=== PATIENT | female | born 1970 | race Hispanic/Latino ===

== ENCOUNTER 2018-06-17 14:04 | Observation (INO) | payer BC ==
--- OUTSIDE RECORDS SUMMARY | 2018-06-17 14:06 | XMS REPORT ---
:1970 [facility] [id number] Care Team Providers Name Role Phone Unavailable Unavailable Unavailable Problems This patient has no known problems. Allergies, Adverse Reactions, Alerts This patient has no known allergies or adverse reactions. Medications This patient has no known medications. Results Test Description Test Time Test Comments Text Results Atomic Results Result Comments [id number] 2018-05-01 11:01:32 CLINICAL INDICATION: Z12.31 Mammography with Annual exam - no breast problems Tomosynthesis today per pt. Saline implants 09/2017. Prior exams w/HMI [id number]: Siemens [employer] Full Field Digital MammographyTECHNIQUE: Digital acquisition of the breasts is performed on the ACR accredited Full Field Digital Mammography Unit. Computer Assisted Detection (CAD) is then accomplished using Numerate Technology. 3D tomosynthesis images were acquired in the CC and MLO projections in both breasts. FINDINGS:COMPARISON STUDY: May 2017, May 2016, December 2010The breast parenchyma is heterogeneously dense which may obscure small masses. Bilateral silicone implants are present. Implants appear subglandular. Implant present and implant displaced views are performed. 3-D imaging was performed on the implant displaced views.No dominant mass, skin thickening, architectural distortion or suspicious microcalcifications are noted.No significant interval change is noted.IMPRESSION:Negative bilateral mammogram RECOMMENDATION: Annual mammography in 1 yearCategory: BIRADS 2 - Benign. For internal use only. N:12 MRI KNEE JNT RT WO 2018-03-19 23:15:00 CLINICAL INDICATION: S83.211A Bucket-hndl tear of medial mensc, crnt injury, r knee, initMODALITY: [employer] 1.2 [place] High Field Open MRITECHNIQUE: Multiplanar multisequence MRI of the right knee was performed .IMPRESSION:1. Mild grade 2 patellar/trochlear groove chondromalacia.2. Trace joint effusion.FINDINGS:COMPARISON: none MENISCI: Medial and lateral menisci are intact.CRUCIATE LIGAMENTS: Anterior and posterior cruciate ligaments are intact.COLLATERAL LIGAMENTS: Medial and lateral collateral ligaments are intact.OSSEOUS STRUCTURES AND CARTILAGINOUS SURFACES: No fractures or destructive osseous lesions are seen. Marrow signal is unremarkable. High-grade chondral lesion in the medial or lateral compartment is not seen.PATELLOFEMORAL COMPARTMENT: Patellofemoral alignment is normal. Mild grade 2 patellar and trochlear groove chondromalacia is apparent..MISCELLANEOUS FINDINGS: Trace joint effusion is present. US BREAST COMPLETE UNL CLINICAL INDICATION: 46-year-old LT/RT female with left lateral palpable lump for 2 months. History of left breast cyst aspiration 2016. No family history breast cancer.MODALITY: Siemens Inspiration Full Field Digital Mammography, [employer] [facility] 70GTECHNIQUE: Digital acquisition of the breasts is performed on the ACR accredited Full Field Digital Mammography Unit. Computer Assisted Detection (CAD) is then accomplished using Numerate Technology. Imaging of the left and right breast is performed.Realtime and Doppler color breast imaging in all quadrants was performed on the left and right breast.FINDINGS:COMPARISON STUDY: Mammograms dating back to December 2010Diagnostic Mammogram:The breast parenchyma is heterogeneously dense which may obscure small masses. Bilateral CC and MLO views are performed in 2-D and 3-D. In the left medial and lateral breast, there are two new circumscribed 1 cm masses. No associated calcifications or distortion. Ultrasound:Bilateral breast ultrasound is performed. A focused physical exam is performed of the palpable lump in the left lateral breast. Corresponding with the palpated lump at left 2 o clock, 2 cm from the nipple, there is a dense ridge of fibroglandular tissue containing small scattered anechoic cyst. No solid masses or distortion are identified in either breast.Additional fibrocystic changes are seen bilaterally, the two largest cysts correspond with the two masses seen on the left mammogram. Specifically:Left breast:2 o clock 2 cm from the nipple, 6 x 2 millimeter in 4 x 2 mm anechoic cyst, 4 o clock 3 cm from the nipple 8 x 7 x 5 mm anechoic circumscribed septated cyst, 4 o clock 2 cm from the nipple, 5 o clock retroareolar sub-centimeter cysts, 10 o clock 3 cm from the nipple 8 mm cyst.Right breast:Right breast 10 o clock 3 cm from the nipple 7 x 5 x 3 mm anechoic circumscribed parallel cyst, 4 o clock 2 cm from the nipple 5 x 4 x 2 mm anechoic circumscribed cyst, 5 o clock 1 cm from the nipple sub-centimeter anechoic cyst, 7 o clock 3 cm from the nipple 5 x 5 x 2 mm circumscribed cyst.No left or right axillary adenopathy.IMPRESSION:Dense breast parenchyma bilaterally and fibrocystic changes. The palpated lump in the left 2 o clock breast corresponds with benign imaging findings. If symptoms persist, suggest further evaluation.RECOMMENDATION:Annua l mammography in 1 year.Category: BIRADS 2 - Benign. For internal use only BIRAD:B2H [id number] CLINICAL INDICATION: 46-year-old Mammography with female with left lateral palpable Tomosynthesis lump for 2 months. History of left breast cyst aspiration 2016. No family history breast cancer.MODALITY: Siemens Inspiration Full Field Digital Mammography, [employer] 70GTECHNIQUE: Digital acquisition of the breasts is performed on the ACR accredited Full Field Digital Mammography Unit. Computer Assisted Detection (CAD) is then accomplished using Numerate Technology. Imaging of the left and right breast is performed.Realtime and Doppler color breast imaging in all quadrants was performed on the left and right breast.FINDINGS:COMPARISON STUDY: Mammograms dating back to December 2010Diagnostic Mammogram:The breast parenchyma is heterogeneously dense which may obscure small masses. Bilateral CC and MLO views are performed in 2-D and 3-D. In the left medial and lateral breast, there are two new circumscribed 1 cm masses. No associated calcifications or distortion. Ultrasound:Bilateral breast ultrasound is performed. A focused physical exam is performed of the palpable lump in the left lateral breast. Corresponding with the palpated lump at left 2 o clock, 2 cm from the nipple, there is a dense ridge of fibroglandular tissue containing small scattered anechoic cyst. No solid masses or distortion are identified in either breast.Additional fibrocystic changes are seen bilaterally, the two largest cysts correspond with the two masses seen on the left mammogram. Specifically:Left breast:2 o clock 2 cm from the nipple, 6 x 2 millimeter in 4 x 2 mm anechoic cyst, 4 o clock 3 cm from the nipple 8 x 7 x 5 mm anechoic circumscribed septated cyst, 4 o clock 2 cm from the nipple, 5 o clock retroareolar sub-centimeter cysts, 10 o clock 3 cm from the nipple 8 mm cyst.Right breast:Right breast 10 o clock 3 cm from the nipple 7 x 5 x 3 mm anechoic circumscribed parallel cyst, 4 o clock 2 cm from the nipple 5 x 4 x 2 mm anechoic circumscribed cyst, 5 o clock 1 cm from the nipple sub-centimeter anechoic cyst, 7 o clock 3 cm from the nipple 5 x 5 x 2 mm circumscribed cyst.No left or right axillary adenopathy.IMPRESSION:Dense breast parenchyma bilaterally and fibrocystic changes. The palpated lump in the left 2 o clock breast corresponds with benign imaging findings. If symptoms persist, suggest further evaluation.RECOMMENDATION: Annual mammography in 1 year.Category: BIRADS 2 - Benign. For internal use only BIRAD:B2H CT BRAIN WO CLINICAL INDICATION: R51 HEADACHE, high pressure and pain.MODALITY: Siemens OhLife CT (Iterative dose reduction techniques are utilized.)TECHNIQUE: Helical imaging of the brain is performed without IV contrast.Computed Tomography Dose Index: 43.37 mGy.IMPRESSION:No evidence of acute intracranial pathology.FINDINGS:COMPARISON: NoneThe crandall and white matter junctions are well defined. The ventricles, cisterns, fissures and sulci are of normal caliber and contour. There is no evidence of mass, mass effect or extra-axial collection. There is no evidence of midline shift.The visualized calvarium is intact. The mastoid air cells and paranasal sinuses are clear.PQRS 436: [id number] (For official use only.)
[2018-06-17] MEDS ORDERED: ONDANSETRON 4 MG/2 ML VIAL ONE ×2 (15:32→19:42)
[2018-06-17] MEDS ORDERED: MORPHINE 4 MG/ML SYR ONE ×2 (15:32→16:39)
[2018-06-17] MEDS ORDERED: NA CHLORIDE 0.9% 1,000 ML ONE ×2 (15:32→17:18)
[2018-06-17 15:38] LABS: Absolute Lymphocytes (CBC) 0.7 K/uL (0.7-4.9); Absolute Monocytes 0.3 K/uL (0.1-1.3); Absolute Neutrophil 10.1 K/uL (1.8-8.0); Basophils % 0.2 % (0-1.3); Eosinophils % 0.1 % (0-4.4); Hematocrit 39.2 % (36.0-45.0); Lymphocytes % 6.2 % (15.3-44.8); MPV 8.5 fL (7.6-11.3); Monocytes % 2.6 % (3.3-12.3); RBC Red Blood Cell Count 4.51 M/uL (3.86-4.86)
[2018-06-17 15:55] LABS: Albumin 3.5 g/dL (3.4-5.0); Bilirubin Direct 0.1 mg/dL (0-0.2); Bilirubin Total 0.4 mg/dL (0.2-1.0); Potassium 3.8 mmol/L (3.5-5.1); Protein, Total 7.2 g/dL (6.4-8.2)
[2018-06-17 16:41] LABS: Urine Blood NEGATIVE (NEG); Urine Glucose NEGATIVE (NEG); Urine Protein TRACE (NEG); Urine pH 7.5 (5.0-7.0)
--- NOTE | 2018-06-17 16:55 | RAD REPORT ---
EXAM DESCRIPTION: CTAbdomen Pelvis W Contrast - 06/17/2018 4:50 pm CLINICAL HISTORY: Abdominal pain. iv contrast only;Abd pain COMPARISON: No comparisons TECHNIQUE: Biphasic CT imaging of the abdomen and pelvis was performed with 100 ml non-ionic IV cont rast. All CT scans are performed using dose optimization technique as appropriate and may include automated exposure control or mA/KV adjustment according to patient size. FINDINGS: The lung bases are clear. The liver demonstrates diffuse fatty infiltration. The spleen, pancreas, adrenal glands and kidneys a re within normal limits. No bowel obstruction, free air, free fluid or abscess. The appendix is dilated to 10 mm in demonstra sally enhancement compatible with acute appendicitis. No evidence of significant lymphadenopathy. No suspicious bony findings. IMPRESSION: Acute appendicitis.
--- NOTE | 2018-06-17 17:08 | EDPHYS ---
Physician Documentation [facility] Name: Tana Ornelas Age: 47 yrs Sex: Female : 1970 Arrival Date: 06/17/2018 Time: 14:07 Bed 15 Private MD: Shaun Matos H ED Physician All Gomez HPI: 06/17 15:09 This 47 yrs old Female presents to ER via Ambulatory with complaints of kb Abdominal Pain, Vomiting. 15:09 The patient presents with abdominal pain in the upper abdomen. Onset: The kb symptoms/episode began/occurred at 08:30. The symptoms radiate to abdomen. Associated signs and symptoms: Pertinent positives: nausea and vomiting, Pertinent negatives: anorexia, blood in stools, chest pain, constipation, diarrhea, dysuria, fever, headache, hematuria, palpitations, shortness of breath, vaginal discharge, vomiting blood. The symptoms are described as constant. Modifying factors: The symptoms are alleviated by nothing, the symptoms are aggravated by nothing. Severity of pain: At its worst the pain was mild moderate in the emergency department the pain is unchanged. The patient has not experienced similar symptoms in the past. The patient has not recently seen a physician. 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 - Social history:: Smoking status: Patient/guardian denies using tobacco, Patient/guardian denies using alcohol. - Ebola Screening: : Patient negative for fever greater than or equal to 101.5 degrees Fahrenheit, and additional compatible Ebola Virus Disease symptoms Patient denies exposure to infectious person Patient denies travel to an Ebola-affected area in the 21 days before illness onset. ROS: 15:08 Constitutional: Negative for fever, chills, and weight loss, ENT: Negative for injury, kb pain, and discharge, Neck: Negative for injury, pain, and swelling, Cardiovascular: Negative for chest pain, palpitations, and edema, Respiratory: Negative for shortness of breath, cough, wheezing, and pleuritic chest pain, Back: Negative for injury and pain, : Negative for injury, bleeding, discharge, and swelling, MS/Extremity: Negative for injury and deformity, Skin: Negative for injury, rash, and discoloration, Neuro: Negative for headache, weakness, numbness, tingling, and seizure. 15:08 Abdomen/GI: Positive for abdominal pain, nausea and vomiting, Negative for diarrhea, constipation, abdominal cramps, abdominal distension, anorexia. Exam: 15:08 Constitutional: This is a well developed, well nourished patient who is awake, alert, kb and in no acute distress. Head/Face: Normocephalic, atraumatic. ENT: Nares patent. No nasal discharge, no septal abnormalities noted. Tympanic membranes are normal and external auditory canals are clear. Oropharynx with no redness, swelling, or masses, exudates, or evidence of obstruction, uvula midline. Mucous membranes moist. Neck: Trachea midline, no thyromegaly or masses palpated, and no cervical lymphadenopathy. Supple, full range of motion without nuchal rigidity, or vertebral point tenderness. No Meningismus. Chest/axilla: Normal chest wall appearance and motion. Nontender with no deformity. No lesions are appreciated. Cardiovascular: Regular rate and rhythm with a normal S1 and S2. No gallops, murmurs, or rubs. Normal PMI, no JVD. No pulse deficits. Respiratory: Lungs have equal breath sounds bilaterally, clear to auscultation and percussion. No rales, rhonchi or wheezes noted. No increased work of breathing, no retractions or nasal flaring. Back: No spinal tenderness. No costovertebral tenderness. Full range of motion. Skin: Warm, dry with normal turgor. Normal color with no rashes, no lesions, and no evidence of cellulitis. MS/ Extremity: Pulses equal, no cyanosis. Neurovascular intact. Full, normal range of motion. Neuro: Awake and alert, GCS 15, oriented to person, place, time, and situation. Cranial nerves II-XII grossly intact. Motor strength 5/5 in all extremities. Sensory grossly intact. Cerebellar exam normal. Normal gait. 15:08 Abdomen/GI: Inspection: abdomen appears normal, Bowel sounds: normal, in all quadrants, Palpation: soft, in all quadrants, mild abdominal tenderness, in all quadrants. Vital Signs: 14:34 BP 120 / 74; Pulse 67; Resp 18; Temp 98.4(O); Pulse Ox 99% on R/A; Weight 68.04 kg; hj Height 5 ft. 1 in. (154.94 cm); Pain 10/10; 15:34 BP 131 / 85; Pulse 66; Resp 17; Pulse Ox 100% on R/A; tw2 16:00 Pain 7/10; tw2 16:36 BP 131 / 79; Pulse 67; Resp 17; Pulse Ox 100% on R/A; Pain 7/10; tw2 17:30 BP 133 / 77; Pulse 70; Resp 17; Pulse Ox 99% on R/A; tw2 19:30 BP 100 / 65; Pulse 89; Resp 16; Temp 99.4; Pulse Ox 97% ; rr5 14:34 Body Mass Index 28.34 (68.04 kg, 154.94 cm) hj MDM: 14:47 Patient medically screened. kb 15:07 Data reviewed: vital signs, nurses notes. Data interpreted: Pulse oximetry: on room air kb is 99 %. Interpretation: normal. 17:06 Counseling: I had a detailed discussion with the patient and/or guardian regarding: the kb historical points, exam findings, and any diagnostic results supporting the discharge/admit diagnosis, lab results, radiology results, the need for further work-up and treatment in the hospital. Physician consultation: Rip Brown MD was contacted at 17:07, regarding admission, to the medical/surgical unit. patient's condition, and will see patient in ED, shortly. 06/17 14:48 Order name: Basic Metabolic Panel; Complete Time: 16:09 kb 06/17 14:48 Order name: CBC with Diff kb 06/17 14:48 Order name: Hepatic Function; Complete Time: 16:09 kb 06/17 14:48 Order name: Lipase; Complete Time: 16:09 kb 06/17 16:30 Order name: Urine Dipstick--Ancillary (enter results); Complete Time: 16:55 iw 06/17 16:30 Order name: Urine --Ancillary (enter results); Complete Time: 16:55 iw 06/17 16:09 Order name: CT Abd/Pelvis - W/Contrast; Complete Time: 17:00 kb 06/17 18:16 Order name: CBC Smear Scan EDMS 06/17 14:48 Order name: IV Saline Lock; Complete Time: 15:33 kb 06/17 14:48 Order name: Labs collected and sent; Complete Time: 15:33 kb 06/17 14:48 Order name: Urine Dipstick-Ancillary (obtain specimen); Complete Time: 17:32 kb Administered Medications: 15:28 Drug: Zofran 4 mg Route: IVP; Site: right antecubital; tw2 16:35 Follow up: Response: No adverse reaction; Nausea is decreased tw2 15:30 Drug: morphine 4 mg Route: IVP; Site: right antecubital; tw2 16:00 Follow up: Pain / Adult; Response: No adverse reaction; Pain is decreased tw2 15:32 Drug: NS 0.9% 1000 ml Route: IV; Rate: 1000 ml; Site: right antecubital; tw2 16:35 Follow up: Response: No adverse reaction; IV Status: Completed infusion; IV Intake: tw2 1000ml 16:35 Drug: morphine 4 mg Route: IVP; Site: right antecubital; tw2 17:45 Follow up: Response: No adverse reaction; Pain is decreased tw2 17:19 Drug: Zosyn 3.375 grams Route: IVPB; Infused Over: 60 mins; Site: right antecubital; tw2 17:19 Drug: NS 0.9% 1000 ml Route: IV; Rate: 125 ml/hr; Site: right antecubital; tw2 19:30 Follow up: Response: No adverse reaction; IV Status: Infusion continued upon admission rr5 Disposition: 06/18 06:49 Co-signature as Attending Physician, All Gomez MD I agree with the assessment and clayton plan of care. Disposition: 06/17/18 17:06 Hospitalization ordered by Rip Brown for Observation. Preliminary diagnosis is Acute appendicitis. - Bed requested for Telemetry/MedSurg (observation). - Status is Observation. rr5 - Condition is Stable. - Problem is new. - Symptoms are unchanged. UTI on Admission? No Signatures: Dispatcher [employer] EDJessica Ellis, MAURILIO-Brett THORPE-All Werner MD MD cha Joaquin, Henry, RN RN Chetna Calvo RN RN tw2 Akiko Valles RN RN df Roque, Raymond, RN RN rr5 Corrections: (The following items were deleted from the chart) 06/17 17:57 17:06 Hospitalization Ordered by Rip Brown MD for Observation. Preliminary df diagnosis is Acute appendicitis. Bed requested for Telemetry/MedSurg (observation). Status is Observation. Condition is Stable. Problem is new. Symptoms are unchanged. UTI on Admission? No. kb 19:37 17:57 06/17/2018 17:06 Hospitalization Ordered by Rip Brown MD for Observation. rr5 Preliminary diagnosis is Acute appendicitis. Bed requested for Telemetry/MedSurg (observation). Status is Observation. Condition is Stable. Problem is new. Symptoms are unchanged. UTI on Admission? No. df
--- NOTE | 2018-06-17 17:08 | ER ---
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 Transition of care: patient was not received from another setting of care. Onset of symptoms was June 17, 2018. Risk Assessment: Do you want to hurt yourself or someone else? Patient reports no desire to harm self or others. Initial Sepsis Screen: Does the patient meet any 2 criteria? No. Patient's initial sepsis screen is negative. Does the patient have a suspected source of infection? No. Patient's initial sepsis screen is negative. Care prior to arrival: None. 14:31 Method Of Arrival: Ambulatory 14:31 Acuity: MICHEL 3 Triage Assessment: 14:33 General: Appears in no apparent distress. uncomfortable, Behavior is calm, cooperative, hj appropriate for age. Pain: Complains of pain in abdomen. GI: Reports lower abdominal pain, upper abdominal pain, nausea, vomiting. 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 - Social history:: Smoking status: Patient/guardian denies using tobacco, Patient/guardian denies using alcohol. - Ebola Screening: : Patient negative for fever greater than or equal to 101.5 degrees Fahrenheit, and additional compatible Ebola Virus Disease symptoms Patient denies exposure to infectious person Patient denies travel to an Ebola-affected area in the 21 days before illness onset. Screenin:34 Abuse screen: Denies threats or abuse. Denies injuries from another. Nutritional hj screening: No deficits noted. Tuberculosis screening: No symptoms or risk factors identified. Fall Risk None identified. Assessment: 14:34 GI: Bowel sounds hj 14:45 General: Appears in no apparent distress. slender, well groomed, Behavior is calm, tw2 cooperative, appropriate for age. Pain: Complains of pain in abdomen. Neuro: Level of Consciousness is awake, alert, obeys commands, Oriented to person, place, time, situation. Cardiovascular: Denies chest pain, shortness of breath, Heart tones S1 S2 Patient's skin is warm and dry. Respiratory: Airway is patent Respiratory effort is even, unlabored, Respiratory pattern is regular, symmetrical, Breath sounds are clear bilaterally. GI: Bowel sounds present X 4 quads. Abd is soft X 4 quads Reports lower abdominal pain, upper abdominal pain, nausea. : No signs and/or symptoms were reported regarding the genitourinary system. EENT: No signs and/or symptoms were reported regarding the EENT system. Derm: No signs and/or symptoms reported regarding the dermatologic system. Musculoskeletal: No signs and/or symptoms reported regarding the musculoskeletal system. Circulation, motion, and sensation intact. Range of motion: intact in all extremities. 15:33 Reassessment: Patient appears in no apparent distress at this time. Patient and/or tw2 family updated on plan of care and expected duration. Pain level reassessed. Patient is alert, oriented x 3, equal unlabored respirations, skin warm/dry/pink. 15:40 Reassessment: pt states "if that morphine is supposed to help with pain, it is not, i tw2 still feel it", provider notified, pt educated as to the need to give the medicine a few morning minutes to work. 16:00 Reassessment: pt reports pain 7/10, provider notified. tw2 16:36 Reassessment: Patient and/or family updated on plan of care and expected duration. Pain tw2 level reassessed. Patient is alert, oriented x 3, equal unlabored respirations, skin warm/dry/pink. pt still c/o pain on right side. 17:35 Reassessment: Patient appears in no apparent distress at this time. Patient and/or tw2 family updated on plan of care and expected duration. Pain level reassessed. Patient is alert, oriented x 3, equal unlabored respirations, skin warm/dry/pink. 18:12 General: Appears in no apparent distress. comfortable, Behavior is calm, cooperative, aj appropriate for age. Neuro: Level of Consciousness is awake, alert, obeys commands, Oriented to person, place, time, situation, Appropriate for age. Respiratory: Airway is patent Respiratory effort is even, unlabored, Respiratory pattern is regular, symmetrical. GI: Abdomen is non-distended, Reports lower abdominal pain, upper abdominal pain. Derm: Skin is intact, is healthy with good turgor, Skin is pink, warm \\T\\ dry. normal. 19:20 Reassessment: Patient appears in no apparent distress at this time. Patient and/or rr5 family updated on plan of care and expected duration. Pain level reassessed. awaiting for OR procedure. no complaints made. Patient states feeling better. Patient states symptoms have improved. Vital Signs: 14:34 BP 120 / 74; Pulse 67; Resp 18; Temp 98.4(O); Pulse Ox 99% on R/A; Weight 68.04 kg; hj Height 5 ft. 1 in. (154.94 cm); Pain 10/10; 15:34 BP 131 / 85; Pulse 66; Resp 17; Pulse Ox 100% on R/A; tw2 16:00 Pain 7/10; tw2 16:36 BP 131 / 79; Pulse 67; Resp 17; Pulse Ox 100% on R/A; Pain 7/10; tw2 17:30 BP 133 / 77; Pulse 70; Resp 17; Pulse Ox 99% on R/A; tw2 19:30 BP 100 / 65; Pulse 89; Resp 16; Temp 99.4; Pulse Ox 97% ; rr5 14:34 Body Mass Index 28.34 (68.04 kg, 154.94 cm) ED Course: 14:07 Patient arrived in ED. mr 14:08 Shaun Matos DO is Private Physician. mr 14:33 Triage completed. hj 14:34 Arm band placed on right wrist. hj 14:36 Patient has correct armband on for positive identification. Placed in gown. Bed in low hj position. Call light in reach. Side rails up X 1. Adult w/ patient. 14:47 Jesisca Younger FNP-C [facility]. kb 14:47 All Gomez MD is Attending Physician. kb 14:51 Chetna Calvo RN is Primary Nurse. tw2 15:04 Inserted saline lock: 22 gauge in right antecubital area, using aseptic technique. tw2 Blood collected. 16:12 Radiology exam delayed due to test not completed at this time. sg4 16:[address] nj 16:46 CT completed. Patient tolerated procedure well. Patient moved back from CT. nj 16:50 CT Abd/Pelvis - W/Contrast In Process Unspecified. EDMS 17:06 Rip Brown MD is Hospitalizing Provider. kb 17:35 Report given to BRADEN Ralph. tw2 17:50 Primary Nurse role handed off by Chetna Calvo RN tw2 18:12 Loree Red RN is Primary Nurse. aj 19:34 No provider procedures requiring assistance completed. Patient admitted, IV remains in rr5 place. intact, No redness/swelling at site. Administered Medications: 15:28 Drug: Zofran 4 mg Route: IVP; Site: right antecubital; tw2 16:35 Follow up: Response: No adverse reaction; Nausea is decreased tw2 15:30 Drug: morphine 4 mg Route: IVP; Site: right antecubital; tw2 16:00 Follow up: Pain 7/10 Adult; Response: No adverse reaction; Pain is decreased tw2 15:32 Drug: NS 0.9% 1000 ml Route: IV; Rate: 1000 ml; Site: right antecubital; tw2 16:35 Follow up: Response: No adverse reaction; IV Status: Completed infusion; IV Intake: tw2 1000ml 16:35 Drug: morphine 4 mg Route: IVP; Site: right antecubital; tw2 17:45 Follow up: Response: No adverse reaction; Pain is decreased tw2 17:19 Drug: Zosyn 3.375 grams Route: IVPB; Infused Over: 60 mins; Site: right antecubital; tw2 17:19 Drug: NS 0.9% 1000 ml Route: IV; Rate: 125 ml/hr; Site: right antecubital; tw2 19:30 Follow up: Response: No adverse reaction; IV Status: Infusion continued upon admission rr5 Intake: 16:35 IV: 1000ml; Total: 1000ml. tw2 Outcome: 17:06 Decision to Hospitalize by Provider. kb 19:34 Admitted to OR accompanied by nurse, via stretcher, with chart, Report called to hima cifuentes RN 19:34 Condition: stable 19:34 Instructed on the need for admit. 19:37 Patient left the ED. rr5 Signatures: Dispatcher [employer] EDJessica Ellis, ANIMAL HANDLER-Brett ANIMAL HANDLER-Loree Lynch, RN RN maury Edel OseiDeny RN BRADEN Chetna Calvo RN RN tw2 Jeffy Capellan [facility] Lenny Hoyos RN RN rr5 Corrections: (The following items were deleted from the chart) 14:36 14:34 Pulse 67bpm; Resp 18bpm; Pulse Ox 99% RA; Temp 98.4F Oral; 68.04 kg; Height 5 ft. hj 1 in.; BMI: 28.3; Pain 10/10; hj 15:38 15:34 Pulse 66bpm; Resp 17bpm; Pulse Ox 100% RA; tw2 tw2
[2018-06-17] MEDS ORDERED: PIPER/TAZO/NS 3.375gm 3.375 GM/100 ML BAG ONE (17:18)
[2018-06-17 18:14] LABS: Urine White Blood Cell Casts OK
[2018-06-17 18:15] LABS: Blood Morphology Comment NOT SEEN (NOT SEEN); Platelet Estimate ADEQ
[2018-06-17] MEDS ORDERED: BUPIVACAINE 0.5% PF 10 ML VIAL ONE (19:30)
[2018-06-17] MEDS ORDERED: PROPOFOL 200 MG/20 ML VIAL IV ONE (19:41)
[2018-06-17] MEDS ORDERED: MIDAZOLAM HCL 2 MG/2 ML INJ ONE (19:41)
[2018-06-17] MEDS ORDERED: FENTANYL CITR 100 MCG/2 ML ONE (19:41)
[2018-06-17] MEDS ORDERED: NEOSTIGMINE 1 MG/ML -5 ML SYRINGE ONE (19:42)
[2018-06-17] MEDS ORDERED: LIDOCAINE 2% MPF 5 ML VIAL ONE (19:42)
[2018-06-17] MEDS ORDERED: GLYCOPYRROLATE 0.2 MG/ML SYR ONE (19:42)
[2018-06-17] MEDS ORDERED: ROCURONIUM 50 MG/5 ML VIAL IV ONE (19:42)
[2018-06-17] MEDS ORDERED: KETOROLAC 30 MG/ML INJ ONE (19:43)
[2018-06-17] MEDS ORDERED: Phenylephrine HCl 10 MG/ML 1 ML VIAL ONE (20:15)
[2018-06-17] MEDS ORDERED: MORPHINE 10 MG/ML VIAL ONE (20:53)
[2018-06-17] MEDS ORDERED: Ringers Lactate 1,000 ML IV ONE (21:20)
[2018-06-17] MEDS ORDERED: MORPHINE 4 MG/ML SYR IV PRN (21:24)
[2018-06-17] MEDS ORDERED: ACETAMINOPHEN 500 MG TAB PO PRN (21:24)
[2018-06-17] MEDS ORDERED: ONDANSETRON 4 MG/2 ML VIAL IV PRN ×2 (21:24)
[2018-06-17] MEDS ORDERED: NA CHLORIDE 0.9% 1,000 ML IV SCH (21:24)
[2018-06-17] MEDS: HYDROMORPHONE HCL 1 MG/ML INJ ONE ×2 (21:32→21:37)
[2018-06-17] MEDS: Ringers Lactate 1,000 ML IV SCH (22:17)
[2018-06-18] MEDS: Ringers Lactate 1,000 ML IV SCH ×3 (04:01→20:25)
[2018-06-18] MEDS: HYDROCODONE/APAP 7.5/325 MG TAB PO PRN ×3 (04:33→20:25)
[2018-06-18 06:09] LABS: Absolute Lymphocytes (CBC) 0.9 K/uL (0.7-4.9); Absolute Monocytes 0.5 K/uL (0.1-1.3); Absolute Neutrophil 8.9 K/uL (1.8-8.0); Basophils % 0.1 % (0-1.3); Eosinophils % 0.2 % (0-4.4); Hematocrit 32.1 % (36.0-45.0); Lymphocytes % 8.9 % (15.3-44.8); MPV 8.5 fL (7.6-11.3); RBC Red Blood Cell Count 3.71 M/uL (3.86-4.86)
[2018-06-18 06:15] LABS: BUN Blood Urea Nitrogen 10 mg/dL (7-18); Bicarbonate 27 mmol/L (21-32); Glucose Level 105 mg/dL (74-106); Potassium 3.8 mmol/L (3.5-5.1); Sodium Level 141 mmol/L (136-145)
[2018-06-18] MEDS: MORPHINE 4 MG/ML SYR IV PRN ×2 (08:37→16:21)
--- NOTE | 2018-06-18 13:31 | P.OP ---
Preoperative diagnosis: Acute abdomen Postoperative diagnosis: Acute abdomen with appendicitis Primary procedure: Laparoscopic appendectomy Anesthesia: General Estimated blood loss: Less than 80 cc Specimen: 1 appendix Operative Technique: The patient was brought to the operating room and placed supine on the table. After induction of adequate general endotracheal anesthesia, the area of the abdomen was prepped with a DuraPrep solution, she was draped in usual aseptic manner. A subumbilical incision was made through her old scar this brought down through the skin and subcutaneous tissue. The Visiport was now used to enter the peritoneal cavity and created pneumoperitoneum to approximately 12 mm of mercury. Under direct vision a 5 mm trocar was placed in the lower midline, and another in the right upper quadrant. We were now able to visualize the right lower quadrant. With the patient placed in Trendelenburg and rolled to the left we could see the cecum. On tracing this taney a week found the acutely inflamed appendix. Ankle inferiorly in and be peer delay partially in a retroperitoneal covering. The appendix was grasped. A window was established between the appendix and the cecum. The linear Stapler was now introduced into the peritoneal cavity placed across the base of the appendix and fired. The appendix was now home from taken down in retrograde manner. At 1 point a smart artery was in countered and transected before it had been fully cauterized. After a few min we were finally able to get control of this vessel and it was clipped with a surgical clip. The appendix had been fully from the surrounding tissue was now placed into an Endo-Catch, and brought out through the umbilical trocar site. Attention was turned back to the cecum in the right lower quadrant. Copious amount of irrigation was used to ensure adequate hemostasis. The effluent was aspirated. Attention was turned towards air above the liver. Once again blood in irrigating fluid was removed from this area. The anterior abdominal wall was also Yves blocked. Attention was now turned towards the umbilicus. It was closed using the Endo Close an absorbable suture. At this point the trocars removed, the sutures tied, and lnio applied to the skin. At the end of the procedure she was stable when sent to the recovery room. Needle sponge instrument count were correct. No drains were placed. Complications: None Transferred to: Recovery Room Condition: Good
--- NOTE | 2018-06-18 13:32 | P.PN ---
Date of Service: 06/18/18 S: Patient's pain is manageable. She states that she is having difficulty urinating. Does not feel issues adequately emptying her bladder. Other than that she is relatively comfortable. O: Vital signs are stable, lab work is stable. Patient's urinalysis yesterday from the ER is negative, she did not have any urinary tract manipulation as the patient voided prior to her surgery. Her abdomen is soft A: Patient is surgically stable. Having some difficulty urinating P: Once the patient is able to empty her bladder, will be ready for discharge. Bladder scan has been ordered.
[2018-06-18] MEDS ORDERED: ESCITALOPRAM 20 MG TAB PO ONE (20:07)
[2018-06-18] MEDS ORDERED: AMITRIPTYLINE 50 MG TAB PO SCH (21:00)
[2018-06-19] MEDS: Ringers Lactate 1,000 ML IV SCH (05:03)
[2018-06-19] MEDS: HYDROCODONE/APAP 7.5/325 MG TAB PO PRN (05:03)
--- NOTE | 2018-06-19 10:16 | P.DS ---
Admission Date: 06/17/18 Discharge Date: 06/19/18 Disposition: ROUTINE DISCHARGE Discharge Condition: GOOD Reason for Admission: Acute postoperative abdominal pain Procedures: Laparoscopic appendectomy Brief History of Present Illness: This patient presents emergency room with severe right lower quadrant abdominal pain. She is found have an acute appendix. She is brought to the operating and 1 a laparoscopic appendectomy. She was admitted postoperatively for observation pain control. The following day she was up ambulating, tolerating a diet, but was able to void completely on her own. A bladder scan showed residual. After further ambulation, increasing liquids p.o., she was finally able to void normally. Today she is up ambulating, tolerating a diet, and anxious to be discharged. She is deemed fit for discharge. Hospital Course: As above Vital Signs/Physical Exam: Temp Pulse Resp BP Pulse Ox 97.6 F 75 18 98/53 L 97 06/19/18 04:00 06/19/18 04:00 06/19/18 04:00 06/19/18 04:00 06/19/18 04:00 Laboratory Data at Discharge: WBC 10.4 K/uL (4.3-10.9) 06/18/18 05:40 Hgb 10.8 g/dL (12.0-15.0) L 06/18/18 05:40 Hct 32.1 % (36.0-45.0) L D 06/18/18 05:40 Plt Count 244 K/uL (152-406) 06/18/18 05:40 Sodium 141 mmol/L (136-145) 06/18/18 05:40 Potassium 3.8 mmol/L (3.5-5.1) 06/18/18 05:40 BUN 10 mg/dL (7-18) 06/18/18 05:40 Creatinine 0.69 mg/dL (0.55-1.3) 06/18/18 05:40 Glucose 105 mg/dL (74-106) 06/18/18 05:40 Total Bilirubin 0.4 mg/dL (0.2-1.0) 06/17/18 14:57 AST 25 U/L (15-37) 06/17/18 14:57 ALT 42 U/L (12-78) 06/17/18 14:57 Alkaline Phosphatase 82 U/L (45-117) 06/17/18 14:57 Lipase 58 U/L (73-393) L 06/17/18 14:57 Home Medications: Amitriptyline [Elavil*] 1 tab PO BEDTIME 06/17/18 Losartan/Hydrochlorothiazide [Losartan-Hctz 50-12.5 mg Tab] 1 tab PO BEDTIME Omeprazole [Prilosec] 40 mg PO DAILY 06/17/18
[2018-06-19] MEDS: MORPHINE 4 MG/ML SYR IV PRN (10:28)
== END 2018-06-19 12:19 | disposition home or self-care (01) ==
LOC: ER 14:04 → ERHOLD 17:08 → 2ND 21:34
PROVIDERS: ADMIT Surgery; ATTEND Surgery
PROC: 0DTJ4ZZ Resection of Appendix, Percutaneous Endoscopic Approach (ICD-10-PCS; principal; 2018-06-18)
DX: K35.80 Unspecified acute appendicitis (principal); I10 Essential (primary) hypertension
CPT/HCPCS: 36415; 74177; 80048; 80076; 81003; 81025; 83690; 85025; 88304; 96361; 96374; 96375; 99285; G0378; J1170; J2250; J2370; J2405; J2543; J2704; J2710; J3010; J7030; Q9967